=== PATIENT | male | born 1965 | race Two or more races ===

== ENCOUNTER 2016-12-15 11:28 | Emergency (ER) | payer MEDICAID ==
[~2016-12-15] VITALS: Ht 165.1 cm; Wt 77.1 kg
[2016-12-15 11:50] VITALS: BP 115/79
--- NOTE | 2016-12-15 12:43 | Emergency Room Report ---
History of Present Illness General Chief Complaint: Pain Source: Patient Present Illness HPI 51-year-old male presents emergency department complaining of tingling sensation and decreased motor movement and strength in the left hand x5 months. Patient states he sustained injury to the left elbow and wrist from fall that resulted in fractures that required surgery. Patient states that since having surgery performed he has had symptoms and they have not improved. Pt denies erythema, swelling or d/c from surgical site. he denies new trauma or injury. Pt. reports shiny appearance to the skin of the left hand and fingers. pt. reports sensation is intact. Pt. denies skin color changes or significant temperature changes. Pt. states he has been taking Motrin without relief. Denies CP, Palpitations, LOC, AMS, dizziness, Changes in Vision, or a sudden severe headache. Allergies: Coded Allergies: No Known Allergies (Unverified , 05/05/14) Patient History Past Medical History: see triage record Past Surgical History: none Pertinent Family History: none Immunizations: UTD Reviewed Nursing Documentation: PMH: Agreed, PSxH: Agreed Nursing Documentation-PMH Past Medical History: No History, Except For Review of Systems All Other Systems: negative except mentioned in HPI Physical Exam Vital Signs Date Time Temp Pulse Resp B/P Pulse Ox O2 Delivery O2 Flow Rate FiO2 12/15/16 11:42 98.1 85 14 115/79 97 Room Air Sp02 EP Interpretation: reviewed, normal General Appearance: no apparent distress, alert, GCS 15, non-toxic Head: normocephalic, atraumatic Eyes: bilateral eye PERRL, bilateral eye normal inspection ENT: hearing grossly normal, normal pharynx, no angioedema, normal voice Neck: full range of motion, supple/symm/no masses Respiratory: chest non-tender, lungs clear, normal breath sounds, speaking full sentences Cardiovascular #1: regular rate, rhythm, no edema, normal capillary refill Cardiovascular #2: 2+ radial (R), 2+ radial (L) - removed splint in order to asses pulses of left hand Musculoskeletal: back normal, gait/station normal, normal range of motion, non- tender, no calf tenderness Neurologic: alert, oriented x3, responsive, motor strength/tone normal, sensory intact, cerebellar normal, normal gait, speech normal, motor weakness - Left hand, weak signal maintenance technician strength, unable to make fist. Psychiatric: judgement/insight normal, memory normal, mood/affect normal Skin: normal color, no rash, warm/dry, well hydrated, wd healing/no infection noted - surgical scar shows no evidence of infection, other - shiny appearance to the skin of the left hand, good capillary refill, normal radial pulse, no increased temperature to palpation. no lesions Medical Decision Making PA Attestation Dr. Siddiqui is my supervising Physician whom patient management has been discussed with. Diagnostic Impression: Primary Impression: Nerve damage Additional Impressions: Nerve pain Nerve injury ER Course 51-year-old male presents emergency department complaining of tingling sensation and decreased motor movement and strength in the left hand x5 months. Patient states he sustained injury to the left elbow and wrist from fall that resulted in fractures that required surgery. Patient states that since having surgery performed he has had symptoms and they have not improved. Pt denies erythema, swelling or d/c from surgical site. he denies new trauma or injury. Pt. reports shiny appearance to the skin of the left hand and fingers. pt. reports sensation is intact. Pt. denies skin color changes or significant temperature changes. Pt. states he has been taking Motrin without relief. Denies CP, Palpitations, LOC, AMS, dizziness, Changes in Vision, or a sudden severe headache. Ddx considered but are not limited to Fracture, dislocation, contusion, Sprain/ Strain/Spasm, Epidural abscess, Neoplastic mets. Vital signs: are WNL, pt. is afebrile H&PE are most consistent with nerve damage of the right hand, and elbow, no evidence of circulatory compromise or infection. ORDERS: - X-ray not warranted at this time, no new trauma. ED INTERVENTIONS: - D/w pt. that I will place him on medication for neuropathic pain, and that it is imperative that he follow up with Neurologist as he has moderate PE findings to suggest nerve injury. d/w pt that he may also benefit from physical therapy which his PCP or neurologist can refer him to after evaluation. pt. acknowledges and agrees with proposed treatment plan. also d/w pt. that he may need to be titrated up on the medication I will be prescribing, and that his PCP can facilitate that for him. DISCHARGE: At this time pt. is stable for d/c to home. Will provide printed patient care instructions, and any necessary prescriptions. Care plan and follow up instructions have been discussed with the patient prior to discharge. Last Vital Signs Date Time Temp Pulse Resp B/P Pulse Ox O2 Delivery O2 Flow Rate FiO2 12/15/16 11:42 98.1 85 14 115/79 97 Room Air Disposition: HOME, SELF-CARE Condition: Stable Scripts Gabapentin* (GABAPENTIN*) 100 Mg Capsule 200 MG ORAL THREE TIMES A DAY, #30 CAP Prov: Alise Hardy 12/15/16 Referrals: [facility],REFERRING (PCP) Patient Instructions: Neuropathic Pain Additional Instructions: Take medications as directed. Follow up with NEUROLOGIST in 3-5 days , Follow up with Primary care Provider in 3-5 days as well. Return sooner to ED if new symptoms occur, or current symptoms become worse. - Please note that this Emergency Department Report was dictated using [employer] software, occasionally this can lead to erroneous entry secondary to interpretation by the dictation equipment. Alise Hardy Dec 15, 2016 12:43
[2016-12-15] MEDS ORDERED: GABAPENTIN100 MG ORAL (12:44)
[2016-12-15 12:50] VITALS: BP 117/77
[2016-12-15 12:52] VITALS: BP 117/77
== END 2016-12-15 12:52 | disposition home or self-care (01) ==
LOC: EMR 12:30
DX: T14.8 Other injury of unspecified body region (principal); M79.2 Neuralgia and neuritis, unspecified; X58.XXXA Exposure to other specified factors, initial encounter; Y92.9 Unspecified place or not applicable
CPT/HCPCS: 99283